=== PATIENT | female | born 1980 ===

== ENCOUNTER 2017-02-08 10:01 | Observation (INO) | payer MEDICAID ==
[~2017-02-08 10:01] MED LIST: ABILIFY10 M1 PO; AMBIEN10 MG; AMBIEN5 M1 PO; ATIVAN0.5 MG PO; AUGMENTIN 875-11 TAB PO; CELEXA20 MG PO; CIPRO500 M1 PO; CIPRO500 MG PO; CLONAZEPAM0.5 MG PO; CYCLOBENZAPRINE10 M1 PO; CYCLOBENZAPRINE5 M1 PO; DARVOCET-N 1001 TAB PO; DESYREL150 MG PO; DOXY-LEMMON100 MG PO; DURAGESIC1 PATCH; EFFEXOR XR37.5 MG; ELAVIL25 MG; FLAGYL500 M1 PO; FLEXERIL10 MG PO; HYDROCHLOROTHIAZIDE; HYDROXYZINE HCL25 MG PO; IBUPROFEN400 MG; IBUPROFEN600 M1 PO; IBUPROFEN800 M1 PO; LEVAQUIN500 M1 PO; LEVAQUIN500 MG; LEXAPRO10 MG; LORTAB 5/500 TA1 TAB PO; Lopressor PO; MACROBID 100 M100 M1 PO; MACROBID 100 M100 MG PO; MACRODANTIN25 MG PO; MEDROL4 MG/DOSE- PO; MOBIC7.5 M1 PO; MOTRIN600 MG PO; MOTRIN800 MG PO; NAPROSYN375 MG; NAPROSYN500 M1 PO; NAPROSYN500 MG PO; NO HOME MEDICATION XX; NO MEDICATIONS; NORCO 5-325 TA1 EACH PO; NORCO 5/325 TAB1 TAB; NORCO 5/325 TAB1 TAB PO; NORCO 5/3251 TA2 PO; NORCO 5/3251 TAB PO; OMEPRAZOLE20 M4 PO; OXYCODONE/APAP PO; PAXIL20 MG PO; PERCOCET; PERCOCET 10/31 UDTAB PO; PERCOCET 5/3251 TAB PO; PERCOCET 5MG/AP1 TAB PO; PHENERGAN25 M1 PO; PREDNISONE10 M1 PO; PREDNISONE10 MG PO; PRENATAL1 TAB; PRENATAL1 TAB PO; PYRIDIUM200 MG PO; REGLAN10 MG; SOMA350 MG PO; TAGAMET800 MG; TOPROL XL50 MG PO; TRAMADOL HCL50 M2 PO; TRAMADOL HCL50 MG PO; TRAZODONE50 MG PO; TYLENOL W/CODEI1 TAB PO; TYLENOL325 M2 PO; TYLENOL325 MG; TYLENOL325 MG PO; TYLENOL500 MG PO; ULTRAM50 M1 PO; ULTRAM50 MG; ULTRAM50 MG PO; VALIUM5 MG PO; VICODIN 5/500 T1 TAB PO; XANAX1 M1 PO; ZOFRAN ODT4 MG PO; ZOFRAN ODT4 MG/UDTAB PO; ZOFRAN ODT8 MG/TAB PO; ZOVIRAX200 M1 PO; no home meds
[2017-02-08] MEDS ORDERED: TYLENOL EXTRA500 M1 PO (10:31)
[2017-02-08] MEDS ORDERED: CYCLOBENZAPRINE10 M1 PO (10:31)
[2017-02-08] MEDS ORDERED: LEXAPRO20 M2 PO (10:31)
[2017-02-08 11:54] LABS: BASO % 0.4 % (0-2); EOSINOPHIL ABSOLUTE COUNT 0.1 tho/cmm (0.0-0.7); HCT-HEMATOCRIT 33.8 % (34.0-49.0); HGB-HEMOGLOBIN 10.9 gm/dl (12.0-15.5); IMMATURE GRANULOCYTES ABSOLUTE 0.02 tho/cmm (0-0.03); IMMATURE GRANULOCYTES PERCENT 0.2 % (0-0.3); LYMPH % 24.2 % (20-45); LYMPH ABSOLUTE COUNT 1.9 tho/cmm (0.8-4.5); MCH (MEAN CORPUSCULAR HGB) 26.9 pg (28.0-32.0); MCHC MEAN CORPUSCULAR HGB CONC 32.2 % (32.0-36.0); MCV (MEAN CELL VOLUME) 83.5 fl (82.0-96.0); MONO % 4.5 % (0-12); MONOCYTE ABSOLUTE COUNT 0.4 tho/cmm (0.0-1.2); NEUTROPHIL ABSOLUTE COUNT 5.6 tho/cmm (1.6-8.0); NEUTROPHIL-AUTOMATED 5.6 tho/cmm (1.6-8.0); NEUTROPHILS % 69.7 % (40-80); PLATELET COUNT 558 tho/cmm (150-450); RED BLOOD COUNT 4.05 mil/cmm (4.00-5.20); RED CELL DISTRIBUTION WIDTH 15.8 % (12.4-16.4)
[2017-02-08 12:00] LABS: PREGNANCY-SERUM NEGATIVE (NEGATIVE)
[2017-02-08 12:06] LABS: ALB/GLOB RATIO 0.7 (0.8-2.0); ALBUMIN 3.4 g/dl (3.5-5.0); ALKALINE PHOSPHATASE 131 U/L (33-138); ALT/SGPT 19 U/L (12-78); BILIRUBIN,TOTAL 0.1 mg/dl (0-1.5); BLOOD UREA NITROGEN 7 mg/dl (6-24); CALCIUM 8.3 mg/dl (8.5-10.5); CARBON DIOXIDE-VENOUS 28 mmol/L (22-32); CHLORIDE 105 mmol/l (96-110); CREATININE 0.65 mg/dl (0.50-1.10); GLUCOSE 101 mg/dL (70-110); LIPASE 95 U/L (73-393); SODIUM 141 mmol/L (135-145); eGFR VALUE FOR BLACK >90 mL/Min
[2017-02-08 12:19] LABS: ANION GAP 12 mmol/L (0-20); AST/SGOT 17 U/L (10-40); POTASSIUM 3.6 mmol/L (3.7-5.1)
[2017-02-08 12:38] LABS: URINE BILIRUBIN NEGATIVE (NEG); URINE BLOOD SMALL (NEG); URINE GLUCOSE (UA) NEGATIVE (NEG); URINE KETONE NEGATIVE (NEG); URINE LEUKOCYTE ESTERASE NEGATIVE (NEG); URINE NITRITE NEGATIVE (NEG); URINE PROTEIN NEGATIVE (NEG)
[2017-02-08 12:44] LABS: URINE APPEARANCE CLEAR; URINE COLOR YELLOW
[2017-02-08 12:56] LABS: URINE EPITHELIAL CELLS 0-1 /[HPF] (0-10); URINE RBC 0-1 /[HPF] (0-5); URINE WBC 0-1 /[HPF] (0-5)
[2017-02-08] MEDS ORDERED: LATUDA20 M1 PO (14:24)
[2017-02-08] MEDS ORDERED: AMBIEN5 M1 PO (14:24)
[2017-02-08] MEDS ORDERED: ALPRAZOLAM1 M3 PO (14:24)
[2017-02-08] MEDS ORDERED: HYDROCODON-ACE1 EA16 PO (14:25)
[2017-02-08] MEDS ORDERED: IBUPROFEN800 M1 PO (14:25)
[2017-02-08] MEDS ORDERED: RELI PO (14:30)
[2017-02-08] MEDS ORDERED: ALKA-SELTZER O1 EAC1 PO (14:32)
[2017-02-09 05:52] LABS: ANION GAP 12 mmol/L (0-20); BLOOD UREA NITROGEN 10 mg/dl (6-24); CALCIUM 7.8 mg/dl (8.5-10.5); CARBON DIOXIDE-VENOUS 25 mmol/L (22-32); CHLORIDE 111 mmol/l (96-110); CREATININE 0.59 mg/dl (0.50-1.10); GLUCOSE 103 mg/dL (70-110); SODIUM 143 mmol/L (135-145); eGFR VALUE FOR BLACK >90 mL/Min
[2017-02-09 05:58] LABS: POTASSIUM 4.5 mmol/L (3.7-5.1)
== END 2017-02-09 18:05 ==
LOC: EDMED 10:01 → EMR2 15:42 → CAR1 17:35
PROVIDERS: Family Medicine; Internal Medicine; ADMIT Hospitalist
DX: G89.29 Other chronic pain (principal); R91.1 Solitary pulmonary nodule; R53.1 Weakness; E66.09 Other obesity due to excess calories; F41.9 Anxiety disorder, unspecified; K21.9 Gastro-esophageal reflux disease without esophagitis; I10 Essential (primary) hypertension; Z79.899 Other long term (current) drug therapy; E87.6 Hypokalemia; G43.909 Migraine, unspecified, not intractable, without status migrainosus; Z90.49 Acquired absence of other specified parts of digestive tract; Z98.890 Other specified postprocedural states
CPT/HCPCS: A9577; G0378; J1200; J1885; J7030; Q9967

== ENCOUNTER 2017-04-08 08:20 | Emergency (ER) | payer MEDICAID ==
[~2017-04-08 08:20] MED LIST changes: +ALKA-SELTZER O1 EAC1 PO; +ALPRAZOLAM1 M3 PO; +HYDROCODON-ACE1 EA16 PO; +LATUDA20 M1 PO; +LEXAPRO20 M2 PO; +RELI PO; +TYLENOL EXTRA500 M1 PO
== END 2017-04-08 10:05 ==
LOC: EDMED 08:20
DX: M54.5 Low back pain (principal); G89.29 Other chronic pain; F31.9 Bipolar disorder, unspecified; F43.10 Post-traumatic stress disorder, unspecified; Z90.49 Acquired absence of other specified parts of digestive tract; Z88.1 Allergy status to other antibiotic agents; Z88.6 Allergy status to analgesic agent
CPT/HCPCS: J1885